=== PATIENT | female | born 1940 | race Asian ===

== ENCOUNTER 2019-08-07 22:17 | Emergency (ER) | payer MEDICARE, OTHER ==
[~2019-08-07] VITALS: Ht 157.5 cm; Wt 59.0 kg
[2019-08-08 01:19] LABS: Basophils # (auto) 0.1 uL; Basophils % (auto) 0.5 % (0.0-2.0); Eosinophils # (auto) 0.1 uL; Eosinophils % (auto) 0.3 % (0.0-7.0); Hematocrit 32.9 % (36.0-46.0); Hemoglobin 11.1 g/dL (12.2-16.2); Lymphocytes # (auto) 1.3 uL; Lymphocytes % (auto) 6.2 % (10.0-50.0); Mean Corpuscular Hgb Conc. 33.6 g/dL (32.0-36.0); Mean Corpuscular Volume 95.2 fL (80.0-100.0); Monocytes # (auto) 0.5 uL; Monocytes % (auto) 2.4 % (0.0-12.0); Neutrophils # (auto) 18.6 uL; Neutrophils % (auto) 90.6 % (37.0-80.0); Nucleated Red Blood Cells % 0.1 %; Platelet Count (auto) 360 10^3/uL (140-450); Red Blood Cells 3.46 10^6/uL (4.0-5.20); Red Cell Distribution Width 13.9 % (11.8-14.3); White Blood Cell 20.5 10^3/uL (4.4-10.8)
[2019-08-08 01:35] LABS: Albumin 2.8 g/dL (3.4-5.0); BUN/Creatinine Ratio 15.2; Calcium 9.2 mg/dL (8.5-10.1); Potassium 4.3 mmol/L (3.5-5.1)
[2019-08-08 01:46] LABS: Bilirubin, Total 0.4 mg/dL (0.2-1.0); Total Protein 8.3 g/dL (6.4-8.2)
[2019-08-08 02:44] LABS: INR 1.07 (0.9-1.15); Partial Thromboplastin Time 26.2 sec (23.64-32.05)
[2019-08-08 03:23] VITALS: BP 107/58
== END 2019-08-08 05:28 | disposition left against medical advice (07) ==
LOC: EDBD 22:17 → ER 22:23
DX: J06.9 Acute upper respiratory infection, unspecified (principal); D72.829 Elevated white blood cell count, unspecified; D24.1 Benign neoplasm of right breast; R53.83 Other fatigue; R06.03 Acute respiratory distress
CPT/HCPCS: 36415; 71045; 80053; 83880; 84484; 85025; 85610; 85730